=== PATIENT | female | born 1995 | race Caucasian/White ===

== ENCOUNTER 2019-12-09 19:36 | Emergency (ER) | payer BC ==
[~2019-12-09] VITALS: Ht 172.7 cm; Wt 81.6 kg
--- NOTE | 2019-12-09 19:49 | NUR ---
ED Nurse Note: Patient walked in from home c/o painful, swollen tonsils. Patient reports going to urgent care 5 days ago, was prescribed antibiotics, unknown med name and dose. Patient aao x 4 and ambulatory with steady gait. Patient reports pain in throat radiating to ears, pain is worsening 9/10. Patient stable on room air upon assessment.
[2019-12-09 19:50] VITALS: BP 130/95
--- NOTE | 2019-12-09 20:09 | NUR ---
ED Nurse Note: ER PA at bedside.
[2019-12-09] MEDS ORDERED: Omnipaque-300 100ml vial INJ ONE (20:15)
[2019-12-09] MEDS ORDERED: Dexamethasone 4mg/ml vial IM ONE (20:15)
[2019-12-09] MEDS ORDERED: Lidocaine 2% Visc 15ml soln ORAL ONE (20:15)
--- NOTE | 2019-12-09 20:15 | Emergency Room Report ---
History of Present Illness General Chief Complaint: Sore Throat Source: Patient Present Illness HPI 24 YO Female presents to the ED c/o 07/[address] and swelling x 7 days. Pt. reports She just finished her last dose today of abx that was given to her at urgent care 5 days ago. Pt. reports she did not have any improvement of her symptoms. She states her throat got worse. She states she has been taking dayquil all day to manage fevers/ pain. Pt. Also reports changes in her voice. She denies ill contacts with similar symptoms. She denies cough. She reports having some PND as well. Pt. denies recent travel. She states she tested negative for strep and flu at the urgent care. COVID-19 risk:Travel to affect: No Allergies: Coded Allergies: No Known Allergies (Unverified , 12/09/19) Patient History Past Medical History: see triage record Past Surgical History: none Pertinent Family History: none Last Menstrual Period: 10/2019 Now: No Immunizations: UTD Reviewed Nursing Documentation: PMH: Agreed; PSxH: Agreed Nursing Documentation-PMH Past Medical History: No Stated History Review of Systems All Other Systems: negative except mentioned in HPI Physical Exam Vital Signs Date Time Temp Pulse Resp B/P (MAP) Pulse Ox O2 Delivery O2 Flow Rate FiO2 12/09/19 19:42 98.4 91 16 132/92 (105) 98 Room Air Sp02 EP Interpretation: reviewed, normal General Appearance: no apparent distress, alert, GCS 15, non-toxic Head: normocephalic, atraumatic Eyes: bilateral eye normal inspection, bilateral eye PERRL ENT: hearing grossly normal, normal voice, TMs + canals normal, uvula midline, moist mucus membranes, tonsillar swelling, pharyngeal erythema, other - no exudates, no soft pallet swellling/ no pillar swelling Neck: full range of motion, thyroid normal, no meningismus, no bony tend, other - no stridor Respiratory: chest non-tender, lungs clear, normal breath sounds, no respiratory distress, no accessory muscle use, no wheezing, speaking full sentences Cardiovascular #1: regular rate, rhythm, no edema Musculoskeletal: normal range of motion, gait/station normal, non-tender Neurologic: alert, motor strength/tone normal, oriented x3, sensory intact, responsive, speech normal Psychiatric: judgement/insight normal Skin: no rash, normal color Lymphatic: other - bilateral ant. cervical nodes palpable Medical Decision Making PA Attestation Dr. Live Is my supervising Physician whom patient management has been discussed with. Diagnostic Impression: Primary Impression: Acute bacterial tonsillitis ER Course 24 YO Female presents to the ED c/o 07/[address] and swelling x 7 days. Pt. reports She just finished her last dose today of abx that was given to her at urgent care 5 days ago. Pt. reports she did not have any improvement of her symptoms. She states her throat got worse. She states she has been taking dayquil all day to manage fevers/ pain. Pt. Also reports changes in her voice. She denies ill contacts with similar symptoms. She denies cough. She reports having some PND as well. Pt. denies recent travel. She states she tested negative for strep and flu at the urgent care. Ddx considered but are not limited to: pharyngitis, strep, [employer]IAN, ludwigs angina, URI Vital signs: are WNL, pt. is afebrile H&PE are most consistent with: suspicion for [employer]CH[employer]ICIAN or retropharyngeal abscess. ORDERS: -CBC: WBC's elevated at 14.4 -BMP: WNL -Urine Hcg: Negative -CT Neck W. Contrast: evidence of tonsillitis, no abscess. ED INTERVENTIONS: -Lidocaine Viscous PO - Decadron 8mg IV -Toradol IV PT. sent home on abx regimen with strict ED return precautions. DISCHARGE: At this time pt. is stable for d/c to home. Will provide printed patient care instructions, and any necessary prescriptions. Care plan and follow up instructions have been discussed with the patient prior to discharge. Labs Test 12/09/19 20:35 White Blood Count 14.4 K/UL (4.8-10.8) Red Blood Count 4.07 M/UL (4.20-5.40) Hemoglobin 12.6 G/DL (12.0-16.0) Hematocrit 37.8 % (37.0-47.0) Mean Corpuscular Volume 93 FL (80-99) Mean Corpuscular Hemoglobin 31.0 PG (27.0-31.0) Mean Corpuscular Hemoglobin Concent 33.3 G/DL (32.0-36.0) Red Cell Distribution Width 11.7 % (11.6-14.8) Platelet Count 266 K/UL (150-450) Mean Platelet Volume 8.4 FL (6.5-10.1) Neutrophils (%) (Auto) 70.2 % (45.0-75.0) Lymphocytes (%) (Auto) 20.2 % (20.0-45.0) Monocytes (%) (Auto) 7.1 % (1.0-10.0) Eosinophils (%) (Auto) 1.5 % (0.0-3.0) Basophils (%) (Auto) 0.9 % (0.0-2.0) Urine HCG, Qualitative Negative (NEGATIVE) Sodium Level 144 MMOL/L (136-145) Potassium Level 3.7 MMOL/L (3.5-5.1) Chloride Level 105 MMOL/L (98-107) Carbon Dioxide Level 27 MMOL/L (21-32) Anion Gap 12 mmol/L (5-15) Blood Urea Nitrogen 6 mg/dL (7-18) Creatinine 0.8 MG/DL (0.55-1.30) Estimat Glomerular Filtration Rate > 60 mL/min (>60) Glucose Level 104 MG/DL (74-106) Calcium Level 9.2 MG/DL (8.5-10.1) CT/MRI/US Diagnostic Results CT/MRI/US Diagnostic Results : Imaging Test Ordered: CT Neck w. Contrast Impression " No evidence for abscess. Shotty bilateral cervical adenopathy. Prominence of tonsillar pillars. Clinical correlation required. Could represent tonsillitis." Per official radiology report- Please see report for specific details. Last Vital Signs Date Time Temp Pulse Resp B/P (MAP) Pulse Ox O2 Delivery O2 Flow Rate FiO2 12/09/19 19:50 98.4 89 18 130/95 98 Room Air Disposition: HOME, SELF-CARE Condition: Stable Scripts Ibuprofen* (MOTRIN*) 600 Mg Tablet 600 MG ORAL THREE TIMES A DAY, #30 TAB 0 Refills Prov: Diamond Hartley 12/09/19 Acetaminophen With Codeine (T#3) (TYLENOL #3 TAB*) Y Tab 1 TAB ORAL Q6H PRN for For Pain, #12 TAB Prov: Diamond Hartley 12/09/19 Amoxicillin/Potassium Clav 875-125* (AUGMENTIN 875-125 TABLET*) 1 Each Tablet 1 TAB ORAL TWICE A DAY for 10 Days, #20 TAB Prov: Diamond Hartley 12/09/19 Referrals: Migdalia Looney [facility] Departure Forms: Return to Work Return to Work Date: Dec 13, 2019 Work Restrictions: None Return to Full Activity: Dec 13, 2019 Patient Instructions: Tonsillitis Additional Instructions: Take medications as directed. Do not drink alcohol, drive, or operate heavy machinery while taking TYLENOL # 3 as this may cause drowsiness. Follow up with a Primary Care Provider in 3-5 days, even if your symptoms have resolved. --Please review list of primary care clinics, if you do not already have a primary care provider Return sooner to ED if new symptoms occur, or current symptoms become worse. - Please note that this Emergency Department Report was dictated using [employer] media community manager technology software, occasionally this can lead to erroneous entry secondary to interpretation by the dictation equipment. Diamond Hartley Dec 09, 2019 20:15
[2019-12-09 21:02] LABS: BASOPHILS % (AUTO) 0.9 % (0.0-2.0); EOSINOPHILS % (AUTO) 1.5 % (0.0-3.0); HEMATOCRIT 37.8 % (37.0-47.0); HEMOGLOBIN 12.6 G/DL (12.0-16.0); LYMPHOCYTES % (AUTO) 20.2 % (20.0-45.0); MEAN CORPUSCULAR VOLUME 93 FL (80-99); MONOCYTES % (AUTO) 7.1 % (1.0-10.0); NEUTROPHILS % (AUTO) 70.2 % (45.0-75.0); PLATELET COUNT 266 K/UL (150-450); RED BLOOD COUNT 4.07 M/UL (4.20-5.40); RED CELL DISTRIBUTION WIDTH 11.7 % (11.6-14.8); WHITE BLOOD COUNT 14.4 K/UL (4.8-10.8)
[2019-12-09 21:18] LABS: ANION GAP 12 mmol/L (5-15); BLOOD UREA NITROGEN 6 mg/dL (7-18); CALCIUM 9.2 MG/DL (8.5-10.1); CARBON DIOXIDE 27 MMOL/L (21-32); CHLORIDE 105 MMOL/L (98-107); CREATININE 0.8 MG/DL (0.55-1.30); POTASSIUM 3.7 MMOL/L (3.5-5.1); SODIUM 144 MMOL/L (136-145)
[2019-12-09] MEDS ORDERED: Ketorolac 30mg Inj IV ONE (21:30)
--- NOTE | 2019-12-09 21:30 | NUR ---
ED Nurse Note: Pt taken to CT in stable condition.
--- NOTE | 2019-12-09 21:51 | NUR ---
ED Nurse Note: Patient returned from CT in stable condition.
--- NOTE | 2019-12-09 21:56 | Diagnostic Imaging Report ---
Indication: Neck pain Technique: IV administration nonionic contrast. Spiral acquisitions obtained through the neck. Multiplanar reconstructions were generated. Total dose length product 137 mGycm. CTDIvol(s) 11, 47, 4 mGy. Dose reduction achieved using automated exposure control Comparison: none Findings: Adenoids and tonsillar pillars are prominent. There is no evidence of circumscribed fluid collection to suggest abscess. Hypopharynx and larynx are unremarkable. There is no prevertebral soft tissue swelling. There is bilateral cervical lymphadenopathy, with the jugulodigastric nodes measuring 3.6 cm long axis by 5 cm short axis dimensions on the right. The parapharyngeal spaces are clear, symmetric. The salivary glands are unremarkable. The sinuses are clear. The mastoids are clear. The included intracranial structures are unremarkable. The included lung apices are clear. Impression: Prominent adenoids and tonsillar pillars, but no fluid collection to suggest abscess. Bilateral cervical lymphadenopathy. Suspect reactive. Recommend close clinical follow-up The CT scanner at [facility] is accredited by the [employer] and the scans are performed using protocols designed to limit radiation exposure to as low as reasonably achievable to attain images of sufficient resolution adequate for diagnostic evaluation.
--- NOTE | 2019-12-09 22:00 | NUR ---
ED Nurse Note: ER PA at bedside.
[2019-12-09] MEDS ORDERED: AUGMENTIN 875-1 EAC1 ORAL (22:09)
[2019-12-09] MEDS ORDERED: IBUPROFEN600 MG ORAL (22:09)
[2019-12-09] MEDS ORDERED: ACETAMINOPHEN-1 EAC1 ORAL (22:09)
[2019-12-09 22:19] VITALS: BP 128/92
--- NOTE | 2019-12-09 22:19 | NUR ---
ER DISCHARGE NOTE: Patient is cleared to be discharged per ERMD, pt is aox4, on room air, with stable vital signs. pt was given dc and prescription instructions, pt was able to verbalize understanding, pt id band and iv site removed intact without complications. pt is able to ambulate with steady gait. pt took all belongings. pt stable upon discharge.
== END 2019-12-09 22:19 | disposition home or self-care (01) ==
LOC: EMR 20:20
DX: J03.90 Acute tonsillitis, unspecified (principal)
CPT/HCPCS: 36415; 70491; 80048; 81025; 85025; 96372; 96374; 99284; J1100; J1885; Q9967